=== PATIENT | female | born 1945 | race Caucasian/White ===

== ENCOUNTER 2016-06-10 10:14 | Emergency (ER) | payer OTHER ==
[~2016-06-10] VITALS: Ht 160 cm; Wt 71.0 kg
[2016-06-10 11:07] LABS: BASOPHIL COUNT 0.1 K/uL (0-0.1); EOSINOPHIL (%) 0.5 % (0-5); EOSINOPHIL COUNT 0.1 K/uL (0-0.3); HEMATOCRIT 47.8 % (36.0-46.0); IMMATURE GRANULOCYTE (%) 0.3 % (0.0-0.7); INSTRUMENT ABS NEUTROPHIL CT 10.2 K/uL; LYMPHOCYTE COUNT 1.4 K/uL (1.0-2.8); MCHC 33.1 G/DL (30.0-36.0); MCV 90.9 FL (83-99); MEAN PLAT.VOLUME 8.9 uM^3 (9.5-12.4); MONOCYTE (%) 6.7 % (3-12); MONOCYTE COUNT 0.9 K/uL (0-0.8); NEUTROPHIL (%) 80.8 % (45-76); NEUTROPHIL COUNT 10.2 K/uL (1.8-6.4); PLATELET COUNT 233 K/uL (156-360); RBC DIS.WIDTH-CV 12.5 % (11.8-14.6); RBC DIS.WIDTH-SD 41.5 % (39-53); RED BLOOD COUNT 5.26 M/uL (3.80-5.20); WHITE BLOOD COUNT 12.6 K/uL (4.1-10.2)
[2016-06-10 11:16] LABS: CHLORIDE 104 mEq/L (99-109); POTASSIUM 3.9 mEq/L (3.7-5.4); SODIUM 138 mEq/L (136-147)
[2016-06-10 11:18] LABS: GLUCOSE 100 mg/dL (70-99)
[2016-06-10 11:19] LABS: ANION GAP 10 MEQ/L (2-14)
[2016-06-10 11:20] LABS: TOTAL BILIRUBIN 1.7 mg/dL (0.0-1.0)
[2016-06-10 11:22] LABS: ALKALINE PHOSPHATASE 67 IU/L (3-129); GFR ESTIMATE (CALCULATED) > 59 mL/min/
[2016-06-10 11:23] LABS: UREA NITROGEN (BUN) 7 mg/dL (9-23)
[2016-06-10] MEDS ORDERED: ROXICODONE5 MG PO (13:39)
[2016-06-10 14:34] VITALS: BP 130/86
== END 2016-06-10 14:35 | disposition home or self-care (01) ==
LOC: EME 10:14 → EXP 10:14
PROVIDERS: Physician Assistant
PROC: 0J990ZZ Drainage of Buttock Subcutaneous Tissue and Fascia, Open Approach (ICD-10-PCS; principal; 2016-06-10)
DX: L72.3 Sebaceous cyst (principal); E78.5 Hyperlipidemia, unspecified; F17.200 Nicotine dependence, unspecified, uncomplicated
CPT/HCPCS: 76882; 80053; 85025; 87070; 87075; 87076; 87205; 99281; 99284; J3010

== ENCOUNTER 2016-06-12 09:04 | Emergency (ER) | payer OTHER ==
[~2016-06-12] VITALS: Ht 160 cm; Wt 72.0 kg
[~2016-06-12 09:04] MED LIST: ROXICODONE5 MG PO
[2016-06-12 09:16] VITALS: BP 118/107
== END 2016-06-12 09:47 | disposition home or self-care (01) ==
LOC: EME 09:04
DX: Z48.01 Encounter for change or removal of surgical wound dressing (principal)
CPT/HCPCS: 99281; 99283